=== PATIENT | male | born 1990 | race African-American/Black ===

== ENCOUNTER 2024-04-21 07:38 | Emergency (ER) | payer SELFPAY ==
[~2024-04-21] VITALS: Ht 182.9 cm; Wt 64.0 kg
[2024-04-21 07:40] VITALS: O2SAT 100
[2024-04-21] MEDS: ACETAMINOPHEN 325MG TABLET PO ONE (08:34)
[2024-04-21] MEDS ORDERED: TOPUD PO (09:06)
[2024-04-21 09:39] VITALS: BP 122/82; PULSE 98; RESP 20; TEMP 36.9; O2SAT 100
== END 2024-04-21 09:39 | disposition home or self-care (01) ==
LOC: ER 07:38
DX: S00.81XA Abrasion of other part of head, initial encounter (principal); M79.18 Myalgia, other site; R41.82 Altered mental status, unspecified; Y92.410 Unspecified street and highway as the place of occurrence of the external cause; Y93.89 Activity, other specified; Y92.89 Other specified places as the place of occurrence of the external cause; Y99.8 Other external cause status
CPT/HCPCS: 71101; 74176; 99284